=== PATIENT | male | born 1990 | race Caucasian/White ===

== ENCOUNTER 2017-02-25 04:46 | Emergency (ER) | payer SELFPAY ==
[~2017-02-25] VITALS: Ht 175.3 cm; Wt 95.3 kg
[2017-02-25 04:54] VITALS: BP 161/99
--- NOTE | 2017-02-25 05:15 | ED GI/GU/ABDOMINAL COMPLAINT ---
History of Present Illness General Chief Complaint: Abdominal Pain/Flank Pain Stated Complaint: ABD PAIN X'S MTHS NOW MUCH WORSE PER PT Source: patient Exam Limitations: no limitations Allergies Coded Allergies: No Known Allergies (02/25/17) Reconcile Medications Hyoscyamine (Levsin) 0.125 MG TABLET 1 TAB PO Q4 ABDOMINAL CRAMPS Triage Note: TRIAGE: PATIENT TO ER FROM HOME REPORTS "WOKE FROM SLEEP W/ ABD PAIN," INTERMITTENT X MANY MONTHS THOUGH TONIGHT "WORST IT'S BEEN." REPORTS TOOK GASX W/O RELIEF IN PAST. DENIES N/V/D. REPORTS ANXIETY FROM BEING AT HOSPITAL. Triage Nurses Notes Reviewed? yes HPI: PATIENT REPORTS PRIOR TO ED VISIT HE WAS ASLEEP, HE SUDDENLY FELT AN ABDOMINAL DISCOMFORT THAT PROMPTED HIM TO COME TO ED. HE REPORTS PREVIOUS EPISODES BUT OVER THE LAST 2 DAYS IT HAS BEEN GETTING PROGRESSIVELY WORSE. HE USUALLY FEELS AN INTERMITTENT DIFFUSED ABDOMINAL DISCOMFORT THAT "WRAPS AROUND TO MY BACK" AFTER EATING NOT RELIEVED WITH ANY OTC MEDS. HE REPORTS BELCHING AND TRIED TAKING GASX WITH NO RELIEF. HE ALSO REPORTS MUCUS MIXED WITH SEMI-SOLID STOOLS. HE'S UNSURE OF FAMILY HISTORY OF INFLAMMATORY OR AUTOIMMUNE DISEASES. HE HAS HAD A POOR APPETITE RECENTLY WITH SUSPECTED RECENT WEIGHT LOSS. LAST BOWEL MOVEMENT TODAY. PRIOR TO TODAY HE HASN'T HAD A BOWEL MOVEMENT FOR THE LAST 2-3 DAYS. HIS DIET NORMALLY CONSISTS OF CEREAL, PIZZA, FRUITS. HE DRINKS SOCIALLY BUT HAS NOT HAD A DRINK RECENTLY. DENIES RECREATIONAL DRUGS. DENIES FEVER, CHILLS, ACID REFLUX, BLOATING, CONSTIPATION, URINARY RETENTION, NAUSEA, VOMITING, SICK CONTACTS, RECENT TRAVEL. (Shania PERSAUD,[facility]) Vital Signs & Intake/Output Vital Signs & Intake/Output Vital Signs Date Time Temp Pulse Resp B/P B/P Pulse O2 O2 Flow FiO2 Mean Ox Delivery Rate 02/25 0628 Room Air 02/25 0454 97.1 99 18 161/99 99 Room Air (Tara PERSAUD,Antonella) Past History Travel History Traveled to [place] past 21 day No Medical History Any Pertinent Medical History? none Neurological: NONE EENT: NONE Cardiovascular: NONE Respiratory: NONE Gastrointestinal: NONE Hepatic: NONE Renal: NONE Musculoskeletal: NONE Psychiatric: NONE Endocrine: NONE Blood Disorders: NONE Cancer(s): NONE SIGNAL MAINTENANCE TECHNICIAN/Reproductive: NONE Surgical History Surgical History: none Psychosocial History What is your primary language Romanian Tobacco Use: Never used Family History Hx Contributory? No (Shania PERSAUD,Harriett) Review of Systems Review of Systems Constitutional: Reports: see HPI. (Shania PERSAUD,Harriett) Physical Exam Physical Exam General Appearance: well developed/nourished, alert, awake, anxious, obese Head: atraumatic, normal appearance Ears, Nose, Throat, Mouth: hearing grossly normal Neck: normal inspection, supple, full range of motion Respiratory: normal breath sounds, lungs clear Cardiovascular: regular rate/rhythm Gastrointestinal: normal bowel sounds, soft, non-tender Extremities: normal range of motion Core Measures ACS in differential dx? No Sepsis Present: No Sepsis Focused Exam Completed? No (Shania PERSAUD,Harriett) Physical Exam Neurologic/Psych: no motor/sensory deficits, awake, alert, oriented x 3 (Tara PERSAUD,Antonella) Progress Differential Diagnosis: appendicitis, bowel obstruction, cholecystitis, inflamm bowel dis, pancreatitis Initial ED EKG: none (Shania PERSAUD,Harriett) Plan of Care: Orders Procedure Date/time Status LIPASE 02/25 511 Complete HEPATIC FUNCTION PANEL 02/25 511 Complete CBC WITHOUT DIFFERENTIAL 02/25 511 Complete BASIC ELECTROLYTES PLUS BUN&CR 02/25 511 Complete AMYLASE 02/25 511 Complete Laboratory Tests 02/25/17 0556: Anion Gap 16, Estimated GFR > 60, BUN/Creatinine Ratio 27.1 H, Total Bilirubin 0.3, Direct Bilirubin 0.2, AST 25, ALT 58, Alkaline Phosphatase 91, Total Protein 7.7, Albumin 4.7, Amylase 52, Lipase 81, CBC w Diff NO MAN DIFF REQ, RBC 5.11, MCV 85.9, MCH 28.9, RDW 12.9, MPV 8.6, Gran % 68.8, Lymphocytes % 24.7, Monocytes % 4.8, Eosinophils % 1.3, Basophils % 0.4, Absolute Granulocytes 4.1, Absolute Lymphocytes 1.5, Absolute Monocytes 0.3, Absolute Eosinophils 0.1, Absolute Basophils 0, PUBS MCHC 33.7 02/25/17 0517: Total Bilirubin Cancelled, Direct Bilirubin Cancelled, AST Cancelled, ALT Cancelled, Alkaline Phosphatase Cancelled, Total Protein Cancelled, Albumin Cancelled Diagnostic Imaging: Viewed by Me: Radiology Read. Discussed w/RAD: Radiology Read. Radiology Impression: PATIENT: GARRICK JAMES PRESENT AGE: 26 PATIENT ACCOUNT NO: [id number] : 88 LOCATION: [facility] ORDERING PHYSICIAN: Harriett Jauregui MD SERVICE DATE: 02/25/17 EXAM TYPE: RAD - XRY-PORTABLE ABDOMEN EXAMINATION: XR PORTABLE ABDOMEN CLINICAL INFORMATION: Epigastric distention. Abdominal pain. COMPARISON: None TECHNIQUE: AP view of the abdomen. FINDINGS: There is a normal bowel gas pattern without dilated loops of bowel. Gas and stool noted in the colon. No suspicious calcifications. No acute osseous abnormality. IMPRESSION: Nonobstructive bowel gas pattern. DICTATED BY: Jim Shepherd MD DATE/TIME DICTATED:02/25/17534 MACHINE PRINTER HOSE:EFREM DATE/TIME TRANSCRIBED:02/25/17534 CONFIDENTIAL, DO NOT COPY WITHOUT APPROPRIATE AUTHORIZATION. <Electronically signed in Other Vendor System> SIGNED BY: Jim Shepherd MD 02/25/17 0539 (Antonella Pacheco MD) Departure Departure Disposition: HOME OR SELF CARE Condition: Stable Clinical Impression Primary Impression: Abdominal pain Referrals: Bobby PERSAUD,Ham Hoffmann Additional Instructions: Follow up with the GI doctor for further evaluation Departure Forms: Customer Survey General Discharge Information Prescriptions: Current Visit Scripts Hyoscyamine (Levsin) 1 TAB PO Q4 #10 TAB (Shania PERSAUD,Harriett) Resident Co-Sign Statement Statement: ED Attending supervision documentation- [X] I saw and evaluated the patient. I have also reviewed all the pertinent lab results and diagnostic results. I agree with the findings and the plan of care as documented in the Resident's documentation. [X] I have reviewed the ED Record and agree with the Resident's documentation. [] Additions or exceptions (if any) to the Resident's note and plan are summarized below: [] (Antonella Pacheco MD)
--- NOTE | 2017-02-25 05:39 | RADIOLOGY REPORT ---
EXAMINATION: XR PORTABLE ABDOMEN CLINICAL INFORMATION: Epigastric distention. Abdominal pain. COMPARISON: None TECHNIQUE: AP view of the abdomen. FINDINGS: There is a normal bowel gas pattern without dilated loops of bowel. Gas and stool noted in the colon. No suspicious calcifications. No acute osseous abnormality. IMPRESSION: Nonobstructive bowel gas pattern.
[2017-02-25 06:09] LABS: ABSOLUTE BASOPHIL COUNT 0 /CUMM (0.0-0.2); ABSOLUTE EOSINOPHIL COUNT 0.1 /CUMM (0.0-0.7); ABSOLUTE GRANULOCYTE CT 4.1 /CUMM (1.4-6.5); ABSOLUTE LYMPH COUNT 1.5 /CUMM (1.2-3.4); ABSOLUTE MONOCYTE COUNT 0.3 /CUMM (0.10-0.60); BASOPHIL % 0.4 % (0.0-2.0); EOSINOPHIL % 1.3 % (0-5); GRANULOCYTE % 68.8 % (42.2-75.2); HEMATOCRIT 43.9 % (42-52); MEAN CORPUSCULAR HGB 28.9 PG (27.0-31.0); MEAN CORPUSCULAR HGB CONC 33.7 G/DL (33.0-37.0); MEAN CORPUSCULAR VOLUME 85.9 FL (80.0-94.0); MEAN PLATELET VOLUME 8.6 FL (7.4-10.4); PLATELET COUNT 216 /CUMM (130-400); RBC DISTRIBUTION WIDTH 12.9 % (11.5-14.5); RED BLOOD CELL CT 5.11 /CUMM (4.70-6.10)
[2017-02-25] MEDS ORDERED: LEVSIN0.125 M1 PO (06:49)
== END 2017-02-25 06:53 ==
LOC: ERH 04:46
PROVIDERS: Student in an Organized Health Care Education/Training Program
DX: R10.9 Unspecified abdominal pain (principal)
CPT/HCPCS: 74018; 82436